=== PATIENT | male | born 1955 | race Caucasian/White ===

== ENCOUNTER 2020-12-17 08:01 | Inpatient (IN) ==
[2020-12-17] MEDS ORDERED: 0.9 % Sodium Chloride 1,000 ML IVC ONE (08:18)
[2020-12-17] MEDS ORDERED: 0.9 % Sodium Chloride 1,000 ML ONE (08:27)
[2020-12-17 08:31] LABS: ABG Base Excess -1 mEq/L (-2 to 3); ABG HCO3 27 mEq/L (21-27); ABG Oxygen Saturation 92 % (95-98); ABG PCO2 61 mmHg (35-45); ABG PH 7.26 pH Units (7.32-7.45); ABG PO2 76 mmHg (85-104); ABG TCO2 29 mEq/L (20-26)
[2020-12-17] MEDS ORDERED: 0.9 % Sodium Chloride 500 ML ONE (08:33)
[2020-12-17] MEDS ORDERED: 0.9 % Sodium Chloride 500 ML IV ONE (08:36)
[2020-12-17 08:40] LABS: Basophils % 0.2 %; Hematocrit 40.2 % (37.5-50.1); Hemoglobin 12.9 g/dL (12.9-16.9); Immature Granulocytes % 0.6 % (0-4); Lymphocytes # 0.7 K/mcL (0.6-4.6); Mean Corpuscular HGB Conc 32.1 g/dL (31.6-35.5); Mean Corpuscular Hemoglobin 30.4 pg (28.0-33.3); Mean Corpuscular Volume 94.8 fL (83.0-100.0); Mean Platelet Volume 10.8 fL (9.4-12.4); Monocytes # 0.8 K/mcL (0.0-1.3); Monocytes % 7.9 %; Neutrophils # 8.1 K/mcL (1.6-8.9); Platelet Count 192 K/mcL (140-400); Red Blood Count 4.24 M/mcL (4.19-5.50); Red Cell Distribution Width 14.2 % (11.5-14.5); Segmented Neutrophils % 84.3 %; White Blood Count 9.6 K/mcL (4.3-11.1)
[2020-12-17 08:55] LABS: Albumin 3.9 g/dL (3.5-5.7); Albumin/Globulin Ratio 1.4 (1.1-2.2); Bilirubin,Direct 0.2 mg/dL (0.0-0.2); Bilirubin,Indirect 0.4 mg/dL (0.0-1.0); Bilirubin,Total 0.6 mg/dL (0.3-1.0); Calcium 8.5 mg/dL (8.6-10.3); Globulin 2.7 g/dL (2.4-3.5); Potassium 4.2 mEq/L (3.5-5.1); Total Protein 6.6 g/dL (6.4-8.9); Troponin I 0.05 ng/mL (< 0.04)
[2020-12-17 09:05] LABS: Influenza A PCR Negative (Negative); Influenza B PCR Negative (Negative); Resp. Syncytial Virus PCR Negative (Negative)
[2020-12-17 09:06] LABS: SARS-CoV-2 by PCR (In House) Negative (Negative)
[2020-12-17 09:57] LABS: Bacteria,Urine Few per hpf (None-Few); Bilirubin,Urine Negative (Negative); Blood,Urine Negative (Negative); Clarity,Urine Clear (Clear); Color,Urine Yellow (Yellow); Glucose,Urine (UA) Normal (Normal); Hyaline Casts,Urine Few per lpf (None Seen); Ketones,Urine Negative (Negative); Leukocyte Esterase,Urine Negative (Negative); Mucus,Urine Few per lpf (None-Few); Nitrite,Urine Negative (Negative); PH,Urine 5.5 pH Units (5.0-8.0); Protein,Urine 30 mg/dL (Neg-Trace); Specific Gravity,Urine 1.017 (1.010-1.025); Urobilinogen,Urine Normal (Normal); WBC,Urine 0-3 per hpf (0-3)
[2020-12-17] MEDS ORDERED: Isovue-370 500 ML BOTTLE IVP ONE (09:57)
[2020-12-17 10:17] LABS: Amphetamine Screen,Urine Negative ng/mL (Cutoff=1000); Barbiturate Screen,Urine Negative ng/mL (Cutoff=200); Benzodiazepines Screen,Urine Negative ng/mL (Cutoff=200); Cannabinoid Screen,Urine Negative ng/mL (Cutoff = 50); Cocaine Screen,Urine Negative ng/mL (Cutoff= 300); Opiate Screen,Urine Negative ng/mL (Cutoff=300); Phencyclidine Screen,Urine Negative ng/mL (Cutoff=25)
[2020-12-17] MEDS ORDERED: Ondansetron 4 MG/2 ML VIAL IVP PRN (11:49)
[2020-12-17] MEDS ORDERED: Naloxone 0.4 MG/ML INJ IVP PRN (11:49)
[2020-12-17] MEDS ORDERED: Furosemide 40 MG/4 ML VIAL IVP ONE (11:50)
[2020-12-17] MEDS ORDERED: *HR* Dextrose 50 % in Water (Syg) 50 ML SYRINGE IVP PRN (11:52)
[2020-12-17] MEDS ORDERED: Dextrose Gel 15 GM/37.5 ML TUBE PO PRN ×2 (11:52)
[2020-12-17] MEDS ORDERED: D5% in Water 1,000 ML IVC PRN (11:52)
[2020-12-17] MEDS: Ipratropium/Albuterol Neb 3 ML IH SCH ×3 (12:00→19:36)
[2020-12-17] MEDS ORDERED: Insulin LISPRO 300 UNITS/3 ML VIAL SUBQ SCH ×2 (12:00→21:00)
[2020-12-17 15:52] LABS: Adenovirus Not Detected (Not Detect); Bordetella Pertussis Not Detected (Not Detect); Chlamydophila pneumoniae Not Detected (Not Detect); Coronavirus 229E Not Detected (Not Detect); Coronavirus HKU1 Not Detected (Not Detect); Coronavirus NL63 Not Detected (Not Detect); Coronavirus OC43 Not Detected (Not Detect); Human Metapneumovirus Not Detected (Not Detect); Human Rhinovirus/Enterovirus Not Detected (Not Detect); Influenza A Subtype 2009 H1 Not Detected (Not Detect); Influenza B Not Detected (Not Detect); Mycoplasma pneumoniae Not Detected (Not Detect); Parainfluenza Virus 1 Not Detected (Not Detect); Parainfluenza Virus 2 Not Detected (Not Detect); Parainfluenza Virus 3 Not Detected (Not Detect); Parainfluenza Virus 4 Not Detected (Not Detect); Respiratory Syncytial Virus Not Detected (Not Detect); SARS-CoV-2 Not Detected (Not Detect)
[2020-12-17] MEDS: Budesonide/Formoterol 160/4.5 1 PUFF INH IH SCH (19:36)
[2020-12-17] MEDS ORDERED: Perflutren Lipid Microsphere 1.3 ML in 0.9 % Sodium Chloride 8.7 ML IVP PRN (19:43)
[2020-12-17] MEDS ORDERED: Furosemide 20 MG/2 ML VIAL IVP ONE (19:44)
[2020-12-17] MEDS ORDERED: methylPREDNISolone 125 MG/2 ML VIAL IVP ONE (20:15)
[2020-12-17] MEDS: QUEtiapine Fumarate 300 MG TABLET PO SCH (20:40)
[2020-12-17] MEDS: *HR* LORazepam 1 MG TABLET PO SCH (20:40)
[2020-12-17] MEDS: Topiramate 100 MG TABLET PO SCH (20:40)
[2020-12-17] MEDS: *HR* Heparin 5,000 UNIT/ML VIAL SQ SCH (20:46)
[2020-12-17] MEDS: Insulin DETEMIR 100 UNIT/ML X5UNITS SUBQ SCH (20:53)
[2020-12-17] MEDS ORDERED: Insulin DETEMIR 100 UNIT/ML X5UNITS SUBQ SCH (21:00)
[2020-12-17] MEDS ORDERED: levoFLOXacin 750 MG TABLET PO SCH (21:00)
[2020-12-18] MEDS: Ipratropium/Albuterol Neb 3 ML IH SCH ×7 (00:28→23:56)
[2020-12-18] MEDS: *HR* Heparin 5,000 UNIT/ML VIAL SQ SCH ×3 (04:39→20:44)
[2020-12-18] MEDS: MethylPREDNISolone 40 MG/ML VIAL IVP SCH ×2 (04:40→20:45)
[2020-12-18 05:54] LABS: Basophils % 0.1 %; Hematocrit 40.7 % (37.5-50.1); Hemoglobin 12.6 g/dL (12.9-16.9); Immature Granulocytes % 0.5 % (0-4); Lymphocytes # 0.3 K/mcL (0.6-4.6); Lymphocytes % 3.3 %; Mean Corpuscular Hemoglobin 29.8 pg (28.0-33.3); Mean Corpuscular Volume 96.2 fL (83.0-100.0); Mean Platelet Volume 11.1 fL (9.4-12.4); Monocytes # 0.2 K/mcL (0.0-1.3); Monocytes % 2.1 %; Neutrophils # 7.9 K/mcL (1.6-8.9); Platelet Count 207 K/mcL (140-400); Red Blood Count 4.23 M/mcL (4.19-5.50); Red Cell Distribution Width 14.6 % (11.5-14.5); White Blood Count 8.4 K/mcL (4.3-11.1)
[2020-12-18 06:11] LABS: Albumin 3.9 g/dL (3.5-5.7); Albumin/Globulin Ratio 1.3 (1.1-2.2); Bilirubin,Total 0.4 mg/dL (0.3-1.0); Calcium 8.8 mg/dL (8.6-10.3); Globulin 2.9 g/dL (2.4-3.5); Magnesium 1.8 mg/dL (1.6-2.6); Phosphorous 2.7 mg/dL (2.7-4.5); Potassium 4.4 mEq/L (3.5-5.1); Total Protein 6.8 g/dL (6.4-8.9)
[2020-12-18 06:34] LABS: Folate 10.6 ng/mL (3.0-16.0)
[2020-12-18] MEDS: Budesonide/Formoterol 160/4.5 1 PUFF INH IH SCH ×2 (07:31→20:01)
[2020-12-18] MEDS: Aspirin Enteric Coated 81 MG Tablet PO SCH (08:43)
[2020-12-18] MEDS: *HR* LORazepam 1 MG TABLET PO SCH ×2 (08:43→20:48)
[2020-12-18] MEDS: ARIPiprazole 10 MG TABLET PO SCH (08:43)
[2020-12-18] MEDS: Finasteride 5 MG TABLET PO SCH (08:43)
[2020-12-18] MEDS: Cholecalciferol (D-3) 1,000 UNIT (25MCG) TABLET PO SCH (08:43)
[2020-12-18] MEDS: Topiramate 100 MG TABLET PO SCH ×2 (08:43→20:43)
[2020-12-18] MEDS: QUEtiapine Fumarate 100 MG TABLET PO SCH (08:44)
[2020-12-18] MEDS: Furosemide 40 MG/4 ML VIAL IVP SCH (08:44)
[2020-12-18] MEDS: Insulin DETEMIR 100 UNIT/ML X5UNITS SUBQ SCH ×2 (08:44→20:44)
[2020-12-18] MEDS: Insulin LISPRO 300 UNITS/3 ML VIAL SUBQ SCH ×4 (08:45→20:44)
[2020-12-18] MEDS ORDERED: Furosemide 40 MG TABLET PO SCH (09:00)
[2020-12-18] MEDS: NIFEdipine XL (24 HR) 30 MG TAB.ER.24 PO SCH (12:43)
[2020-12-18] MEDS ORDERED: Insulin DETEMIR 100 UNIT/ML X5UNITS SUBQ ONE (13:39)
[2020-12-18 14:12] LABS: Estimated Average Glucose 180 mg/dl; Hemoglobin A1C 7.9 %
[2020-12-18] MEDS: QUEtiapine Fumarate 300 MG TABLET PO SCH (20:43)
[2020-12-19 04:52] LABS: Basophils % 0.1 %; Hematocrit 37.6 % (37.5-50.1); Hemoglobin 12.1 g/dL (12.9-16.9); Immature Granulocytes % 0.4 % (0-4); Lymphocytes # 0.4 K/mcL (0.6-4.6); Mean Corpuscular HGB Conc 32.2 g/dL (31.6-35.5); Mean Corpuscular Hemoglobin 30.3 pg (28.0-33.3); Mean Platelet Volume 10.8 fL (9.4-12.4); Monocytes # 0.4 K/mcL (0.0-1.3); Monocytes % 4.1 %; Neutrophils # 8.8 K/mcL (1.6-8.9); Platelet Count 225 K/mcL (140-400); Red Cell Distribution Width 14.2 % (11.5-14.5); Segmented Neutrophils % 91.4 %; White Blood Count 9.7 K/mcL (4.3-11.1)
[2020-12-19 05:07] LABS: Calcium 8.7 mg/dL (8.6-10.3); Potassium 4.4 mEq/L (3.5-5.1)
[2020-12-19] MEDS: Ipratropium/Albuterol Neb 3 ML IH SCH ×5 (05:09→20:00)
[2020-12-19] MEDS: *HR* Heparin 5,000 UNIT/ML VIAL SQ SCH ×3 (05:42→21:26)
[2020-12-19] MEDS: MethylPREDNISolone 40 MG/ML VIAL IVP SCH ×2 (05:47→17:14)
[2020-12-19] MEDS: Budesonide/Formoterol 160/4.5 1 PUFF INH IH SCH ×2 (07:58→20:00)
[2020-12-19] MEDS: Topiramate 100 MG TABLET PO SCH ×2 (09:26→21:26)
[2020-12-19] MEDS: Insulin LISPRO 300 UNITS/3 ML VIAL SUBQ SCH ×6 (09:32→21:27)
[2020-12-19] MEDS: Insulin DETEMIR 100 UNIT/ML X5UNITS SUBQ SCH ×2 (09:33→21:27)
[2020-12-19] MEDS: *HR* LORazepam 1 MG TABLET PO SCH ×2 (09:33→21:26)
[2020-12-19] MEDS: Finasteride 5 MG TABLET PO SCH (09:33)
[2020-12-19] MEDS: QUEtiapine Fumarate 100 MG TABLET PO SCH (09:33)
[2020-12-19] MEDS: Cholecalciferol (D-3) 1,000 UNIT (25MCG) TABLET PO SCH (09:33)
[2020-12-19] MEDS: ARIPiprazole 10 MG TABLET PO SCH (09:33)
[2020-12-19] MEDS: Aspirin Enteric Coated 81 MG Tablet PO SCH (09:33)
[2020-12-19] MEDS: Furosemide 40 MG/4 ML VIAL IVP SCH (09:34)
[2020-12-19] MEDS ORDERED: Insulin DETEMIR 100 UNIT/ML X5UNITS SUBQ ONE (10:22)
[2020-12-19] MEDS: NIFEdipine XL (24 HR) 30 MG TAB.ER.24 PO SCH (13:32)
[2020-12-19] MEDS: levoFLOXacin 750 MG TABLET PO SCH (17:14)
[2020-12-19] MEDS: QUEtiapine Fumarate 300 MG TABLET PO SCH (21:26)
[2020-12-19] MEDS: cloZAPine 25 MG TABLET PO SCH (21:26)
[2020-12-20] MEDS: Ipratropium/Albuterol Neb 3 ML IH SCH ×7 (00:08→23:02)
[2020-12-20 01:45] LABS: Basophils % 0.1 %; Hematocrit 36.4 % (37.5-50.1); Hemoglobin 11.8 g/dL (12.9-16.9); Immature Granulocytes % 0.4 % (0-4); Lymphocytes # 0.6 K/mcL (0.6-4.6); Lymphocytes % 7.3 %; Mean Corpuscular HGB Conc 32.4 g/dL (31.6-35.5); Mean Corpuscular Hemoglobin 30.4 pg (28.0-33.3); Mean Corpuscular Volume 93.8 fL (83.0-100.0); Mean Platelet Volume 10.7 fL (9.4-12.4); Monocytes # 0.5 K/mcL (0.0-1.3); Monocytes % 6.3 %; Neutrophils # 6.6 K/mcL (1.6-8.9); Platelet Count 209 K/mcL (140-400); Red Blood Count 3.88 M/mcL (4.19-5.50); Red Cell Distribution Width 14.2 % (11.5-14.5); Segmented Neutrophils % 85.9 %; White Blood Count 7.6 K/mcL (4.3-11.1)
[2020-12-20 02:02] LABS: Potassium 4.6 mEq/L (3.5-5.1)
[2020-12-20] MEDS: MethylPREDNISolone 40 MG/ML VIAL IVP SCH (05:09)
[2020-12-20] MEDS: *HR* Heparin 5,000 UNIT/ML VIAL SQ SCH ×3 (05:11→21:31)
[2020-12-20] MEDS: Furosemide 40 MG/4 ML VIAL IVP SCH (07:31)
[2020-12-20] MEDS: ARIPiprazole 10 MG TABLET PO SCH (07:31)
[2020-12-20] MEDS: Topiramate 100 MG TABLET PO SCH ×2 (07:32→21:30)
[2020-12-20] MEDS: QUEtiapine Fumarate 100 MG TABLET PO SCH (07:32)
[2020-12-20] MEDS: Cholecalciferol (D-3) 1,000 UNIT (25MCG) TABLET PO SCH (07:33)
[2020-12-20] MEDS: *HR* LORazepam 1 MG TABLET PO SCH ×2 (07:33→21:30)
[2020-12-20] MEDS: Aspirin Enteric Coated 81 MG Tablet PO SCH (07:33)
[2020-12-20] MEDS: Insulin LISPRO 300 UNITS/3 ML VIAL SUBQ SCH ×7 (07:33→21:34)
[2020-12-20] MEDS: Finasteride 5 MG TABLET PO SCH (07:33)
[2020-12-20] MEDS: levoFLOXacin 750 MG TABLET PO SCH (07:33)
[2020-12-20] MEDS: Budesonide/Formoterol 160/4.5 1 PUFF INH IH SCH ×2 (07:55→19:50)
[2020-12-20] MEDS: Insulin DETEMIR 100 UNIT/ML X5UNITS SUBQ SCH ×2 (08:02→21:31)
[2020-12-20] MEDS ORDERED: Insulin DETEMIR 100 UNIT/ML X5UNITS SUBQ ONE (08:41)
[2020-12-20] MEDS: NIFEdipine XL (24 HR) 30 MG TAB.ER.24 PO SCH (11:39)
[2020-12-20] MEDS: QUEtiapine Fumarate 300 MG TABLET PO SCH (21:30)
[2020-12-20] MEDS: cloZAPine 25 MG TABLET PO SCH (21:31)
[2020-12-21 02:40] LABS: Basophils % 0.3 %; Eosinophils % 0.3 %; Hematocrit 39.5 % (37.5-50.1); Hemoglobin 12.3 g/dL (12.9-16.9); Immature Granulocytes % 0.7 % (0-4); Lymphocytes # 1.4 K/mcL (0.6-4.6); Lymphocytes % 16.1 %; Mean Corpuscular HGB Conc 31.1 g/dL (31.6-35.5); Mean Corpuscular Hemoglobin 29.6 pg (28.0-33.3); Mean Platelet Volume 10.4 fL (9.4-12.4); Monocytes # 0.9 K/mcL (0.0-1.3); Monocytes % 9.5 %; Neutrophils # 6.5 K/mcL (1.6-8.9); Platelet Count 208 K/mcL (140-400); Red Blood Count 4.16 M/mcL (4.19-5.50); Red Cell Distribution Width 14.4 % (11.5-14.5); Segmented Neutrophils % 73.1 %; White Blood Count 8.9 K/mcL (4.3-11.1)
[2020-12-21 02:55] LABS: Calcium 9.3 mg/dL (8.6-10.3); Potassium 4.1 mEq/L (3.5-5.1)
[2020-12-21] MEDS: Ipratropium/Albuterol Neb 3 ML IH SCH ×6 (04:02→23:51)
[2020-12-21] MEDS: *HR* Heparin 5,000 UNIT/ML VIAL SQ SCH ×3 (06:30→21:31)
[2020-12-21] MEDS: Budesonide/Formoterol 160/4.5 1 PUFF INH IH SCH ×2 (07:39→20:25)
[2020-12-21] MEDS: Insulin LISPRO 300 UNITS/3 ML VIAL SUBQ SCH ×7 (08:12→21:47)
[2020-12-21] MEDS: *HR* LORazepam 1 MG TABLET PO SCH ×2 (08:13→21:39)
[2020-12-21] MEDS: levoFLOXacin 750 MG TABLET PO SCH (08:13)
[2020-12-21] MEDS: Finasteride 5 MG TABLET PO SCH (08:13)
[2020-12-21] MEDS: ARIPiprazole 10 MG TABLET PO SCH (08:14)
[2020-12-21] MEDS: QUEtiapine Fumarate 100 MG TABLET PO SCH (08:14)
[2020-12-21] MEDS: Aspirin Enteric Coated 81 MG Tablet PO SCH (08:14)
[2020-12-21] MEDS: Topiramate 100 MG TABLET PO SCH ×2 (08:14→21:39)
[2020-12-21] MEDS: Cholecalciferol (D-3) 1,000 UNIT (25MCG) TABLET PO SCH (08:14)
[2020-12-21] MEDS: Insulin DETEMIR 100 UNIT/ML X5UNITS SUBQ SCH ×2 (09:23→21:31)
[2020-12-21] MEDS: NIFEdipine XL (24 HR) 30 MG TAB.ER.24 PO SCH (12:32)
[2020-12-21] MEDS ORDERED: Acetaminophen 325 MG TABLET PO ONE (20:03)
[2020-12-21] MEDS: QUEtiapine Fumarate 300 MG TABLET PO SCH (21:39)
[2020-12-21] MEDS: cloZAPine 25 MG TABLET PO SCH (21:39)
[2020-12-21] MEDS: polyethylene glycoL 3350 17 GM POWD.PACK PO PRN (23:27)
[2020-12-22] MEDS: Ipratropium/Albuterol Neb 3 ML IH SCH ×6 (03:49→23:39)
[2020-12-22] MEDS: *HR* Heparin 5,000 UNIT/ML VIAL SQ SCH ×3 (06:01→21:17)
[2020-12-22 06:28] LABS: Calcium 8.7 mg/dL (8.6-10.3); Potassium 4.3 mEq/L (3.5-5.1)
[2020-12-22 06:30] LABS: Basophils # 0.1 K/mcL (0.0-0.2); Basophils % 0.6 %; Eosinophils # 0.1 K/mcL (0.0-0.6); Hematocrit 37.9 % (37.5-50.1); Hemoglobin 11.9 g/dL (12.9-16.9); Immature Granulocytes % 1.7 % (0-4); Lymphocytes # 1.3 K/mcL (0.6-4.6); Lymphocytes % 16.8 %; Mean Corpuscular HGB Conc 31.4 g/dL (31.6-35.5); Mean Corpuscular Hemoglobin 29.9 pg (28.0-33.3); Mean Corpuscular Volume 95.2 fL (83.0-100.0); Mean Platelet Volume 10.7 fL (9.4-12.4); Monocytes # 0.7 K/mcL (0.0-1.3); Monocytes % 9.6 %; Neutrophils # 5.4 K/mcL (1.6-8.9); Platelet Count 221 K/mcL (140-400); Red Blood Count 3.98 M/mcL (4.19-5.50); Red Cell Distribution Width 14.4 % (11.5-14.5); Segmented Neutrophils % 70.3 %; White Blood Count 7.7 K/mcL (4.3-11.1)
[2020-12-22] MEDS: Budesonide/Formoterol 160/4.5 1 PUFF INH IH SCH ×2 (08:03→20:33)
[2020-12-22] MEDS: Insulin LISPRO 300 UNITS/3 ML VIAL SUBQ SCH ×7 (08:24→21:16)
[2020-12-22] MEDS: ARIPiprazole 10 MG TABLET PO SCH (08:25)
[2020-12-22] MEDS: Finasteride 5 MG TABLET PO SCH (08:25)
[2020-12-22] MEDS: Aspirin Enteric Coated 81 MG Tablet PO SCH (08:25)
[2020-12-22] MEDS: QUEtiapine Fumarate 100 MG TABLET PO SCH (08:25)
[2020-12-22] MEDS: Cholecalciferol (D-3) 1,000 UNIT (25MCG) TABLET PO SCH (08:25)
[2020-12-22] MEDS: *HR* LORazepam 1 MG TABLET PO SCH ×2 (08:26→21:14)
[2020-12-22] MEDS: levoFLOXacin 750 MG TABLET PO SCH (08:26)
[2020-12-22] MEDS: Insulin DETEMIR 100 UNIT/ML X5UNITS SUBQ SCH ×2 (08:26→21:16)
[2020-12-22] MEDS: Topiramate 100 MG TABLET PO SCH ×2 (08:26→21:14)
[2020-12-22] MEDS ORDERED: Isovue-370 500 ML BOTTLE IVP ONE (11:39)
[2020-12-22] MEDS: NIFEdipine XL (24 HR) 30 MG TAB.ER.24 PO SCH (12:55)
[2020-12-22] MEDS: polyethylene glycoL 3350 17 GM POWD.PACK PO PRN (13:06)
[2020-12-22 18:14] LABS: Influenza A PCR Negative (Negative); Influenza B PCR Negative (Negative); Resp. Syncytial Virus PCR Negative (Negative)
[2020-12-22 18:15] LABS: SARS-CoV-2 by PCR (In House) Negative (Negative)
[2020-12-22] MEDS: QUEtiapine Fumarate 300 MG TABLET PO SCH (21:14)
[2020-12-22] MEDS: cloZAPine 25 MG TABLET PO SCH (21:15)
[2020-12-23 01:39] LABS: Basophils # 0.1 K/mcL (0.0-0.2); Basophils % 0.6 %; Eosinophils # 0.2 K/mcL (0.0-0.6); Hematocrit 39.7 % (37.5-50.1); Hemoglobin 12.2 g/dL (12.9-16.9); Immature Granulocytes % 2.1 % (0-4); Lymphocytes # 1.2 K/mcL (0.6-4.6); Lymphocytes % 14.5 %; Mean Corpuscular HGB Conc 30.7 g/dL (31.6-35.5); Mean Corpuscular Hemoglobin 29.2 pg (28.0-33.3); Mean Platelet Volume 10.8 fL (9.4-12.4); Monocytes # 0.8 K/mcL (0.0-1.3); Monocytes % 9.5 %; Neutrophils # 5.8 K/mcL (1.6-8.9); Platelet Count 231 K/mcL (140-400); Red Blood Count 4.18 M/mcL (4.19-5.50); Red Cell Distribution Width 14.2 % (11.5-14.5); Segmented Neutrophils % 71.3 %; White Blood Count 8.1 K/mcL (4.3-11.1)
[2020-12-23 02:01] LABS: Potassium 4.6 mEq/L (3.5-5.1)
[2020-12-23] MEDS: Ipratropium/Albuterol Neb 3 ML IH SCH ×6 (04:32→23:18)
[2020-12-23] MEDS: *HR* Heparin 5,000 UNIT/ML VIAL SQ SCH ×3 (05:29→21:45)
[2020-12-23] MEDS: ARIPiprazole 10 MG TABLET PO SCH (07:14)
[2020-12-23] MEDS: Insulin LISPRO 300 UNITS/3 ML VIAL SUBQ SCH ×7 (07:14→21:45)
[2020-12-23] MEDS: Cholecalciferol (D-3) 1,000 UNIT (25MCG) TABLET PO SCH (07:15)
[2020-12-23] MEDS: levoFLOXacin 750 MG TABLET PO SCH (07:15)
[2020-12-23] MEDS: Insulin DETEMIR 100 UNIT/ML X5UNITS SUBQ SCH (07:15)
[2020-12-23] MEDS: QUEtiapine Fumarate 100 MG TABLET PO SCH (07:15)
[2020-12-23] MEDS: *HR* LORazepam 1 MG TABLET PO SCH ×2 (07:16→21:44)
[2020-12-23] MEDS: Topiramate 100 MG TABLET PO SCH ×2 (07:16→21:45)
[2020-12-23] MEDS: Finasteride 5 MG TABLET PO SCH (07:16)
[2020-12-23] MEDS: Aspirin Enteric Coated 81 MG Tablet PO SCH (07:16)
[2020-12-23] MEDS: Budesonide/Formoterol 160/4.5 1 PUFF INH IH SCH ×2 (07:41→20:11)
[2020-12-23] MEDS: NIFEdipine XL (24 HR) 30 MG TAB.ER.24 PO SCH (12:54)
[2020-12-23] MEDS ORDERED: Furosemide 40 MG/4 ML VIAL IVP ONE (13:35)
[2020-12-23] MEDS ORDERED: Insulin DETEMIR 100 UNIT/ML X5UNITS SUBQ SCH (21:00)
[2020-12-23] MEDS: cloZAPine 25 MG TABLET PO SCH (21:44)
[2020-12-23] MEDS: QUEtiapine Fumarate 300 MG TABLET PO SCH (21:44)
[2020-12-24 02:59] LABS: Basophils # 0.1 K/mcL (0.0-0.2); Basophils % 0.6 %; Eosinophils # 0.2 K/mcL (0.0-0.6); Eosinophils % 1.9 %; Hematocrit 38.4 % (37.5-50.1); Hemoglobin 12.4 g/dL (12.9-16.9); Immature Granulocytes % 2.4 % (0-4); Lymphocytes # 1.1 K/mcL (0.6-4.6); Lymphocytes % 13.1 %; Mean Corpuscular HGB Conc 32.3 g/dL (31.6-35.5); Mean Corpuscular Hemoglobin 30.5 pg (28.0-33.3); Mean Corpuscular Volume 94.6 fL (83.0-100.0); Mean Platelet Volume 10.8 fL (9.4-12.4); Monocytes # 0.8 K/mcL (0.0-1.3); Monocytes % 9.3 %; Neutrophils # 6.1 K/mcL (1.6-8.9); Platelet Count 210 K/mcL (140-400); Red Blood Count 4.06 M/mcL (4.19-5.50); Segmented Neutrophils % 72.7 %; White Blood Count 8.4 K/mcL (4.3-11.1)
[2020-12-24 03:14] LABS: Calcium 8.7 mg/dL (8.6-10.3); Potassium 4.2 mEq/L (3.5-5.1)
[2020-12-24] MEDS: Ipratropium/Albuterol Neb 3 ML IH SCH ×5 (04:04→21:03)
[2020-12-24] MEDS: *HR* Heparin 5,000 UNIT/ML VIAL SQ SCH ×3 (06:56→22:09)
[2020-12-24] MEDS: Budesonide/Formoterol 160/4.5 1 PUFF INH IH SCH ×2 (07:49→21:01)
[2020-12-24] MEDS ORDERED: Furosemide 40 MG/4 ML VIAL IVP ONE (08:57)
[2020-12-24] MEDS: Insulin LISPRO 300 UNITS/3 ML VIAL SUBQ SCH ×7 (10:08→22:07)
[2020-12-24] MEDS: QUEtiapine Fumarate 100 MG TABLET PO SCH (10:09)
[2020-12-24] MEDS: Topiramate 100 MG TABLET PO SCH ×2 (10:09→22:08)
[2020-12-24] MEDS: ARIPiprazole 10 MG TABLET PO SCH (10:10)
[2020-12-24] MEDS: *HR* LORazepam 1 MG TABLET PO SCH ×2 (10:10→22:08)
[2020-12-24] MEDS: Aspirin Enteric Coated 81 MG Tablet PO SCH (10:10)
[2020-12-24] MEDS: Cholecalciferol (D-3) 1,000 UNIT (25MCG) TABLET PO SCH (10:10)
[2020-12-24] MEDS: Finasteride 5 MG TABLET PO SCH (10:10)
[2020-12-24] MEDS: NIFEdipine XL (24 HR) 30 MG TAB.ER.24 PO SCH (13:00)
[2020-12-24] MEDS ORDERED: Insulin DETEMIR 100 UNIT/ML X5UNITS SUBQ ONE (17:19)
[2020-12-24] MEDS: QUEtiapine Fumarate 300 MG TABLET PO SCH (22:07)
[2020-12-24] MEDS: Insulin DETEMIR 100 UNIT/ML X5UNITS SUBQ SCH (22:09)
[2020-12-24] MEDS: cloZAPine 25 MG TABLET PO SCH (22:09)
[2020-12-25] MEDS: Ipratropium/Albuterol Neb 3 ML IH SCH ×7 (00:32→23:59)
[2020-12-25] MEDS: *HR* Heparin 5,000 UNIT/ML VIAL SQ SCH ×3 (06:01→21:22)
[2020-12-25] MEDS: Budesonide/Formoterol 160/4.5 1 PUFF INH IH SCH ×2 (07:46→21:10)
[2020-12-25 07:51] LABS: Basophils # 0.1 K/mcL (0.0-0.2); Basophils % 0.8 %; Eosinophils # 0.1 K/mcL (0.0-0.6); Eosinophils % 1.9 %; Hematocrit 38.5 % (37.5-50.1); Hemoglobin 12.2 g/dL (12.9-16.9); Immature Granulocytes % 3.4 % (0-4); Lymphocytes # 1.1 K/mcL (0.6-4.6); Lymphocytes % 14.9 %; Mean Corpuscular HGB Conc 31.7 g/dL (31.6-35.5); Mean Corpuscular Volume 94.8 fL (83.0-100.0); Mean Platelet Volume 10.9 fL (9.4-12.4); Monocytes # 0.7 K/mcL (0.0-1.3); Monocytes % 8.9 %; Neutrophils # 5.2 K/mcL (1.6-8.9); Platelet Count 229 K/mcL (140-400); Red Blood Count 4.06 M/mcL (4.19-5.50); Red Cell Distribution Width 14.1 % (11.5-14.5); Segmented Neutrophils % 70.1 %; White Blood Count 7.4 K/mcL (4.3-11.1)
[2020-12-25 08:05] LABS: Calcium 8.8 mg/dL (8.6-10.3); Potassium 4.4 mEq/L (3.5-5.1)
[2020-12-25] MEDS: Insulin LISPRO 300 UNITS/3 ML VIAL SUBQ SCH ×7 (08:53→21:49)
[2020-12-25] MEDS: Cholecalciferol (D-3) 1,000 UNIT (25MCG) TABLET PO SCH (08:54)
[2020-12-25] MEDS: QUEtiapine Fumarate 100 MG TABLET PO SCH (08:54)
[2020-12-25] MEDS: Topiramate 100 MG TABLET PO SCH ×2 (08:54→21:23)
[2020-12-25] MEDS: *HR* LORazepam 1 MG TABLET PO SCH ×2 (08:54→21:23)
[2020-12-25] MEDS: Insulin DETEMIR 100 UNIT/ML X5UNITS SUBQ SCH ×2 (08:54→21:23)
[2020-12-25] MEDS: Finasteride 5 MG TABLET PO SCH (08:55)
[2020-12-25] MEDS: Aspirin Enteric Coated 81 MG Tablet PO SCH (08:55)
[2020-12-25] MEDS: ARIPiprazole 10 MG TABLET PO SCH (08:55)
[2020-12-25] MEDS: NIFEdipine XL (24 HR) 30 MG TAB.ER.24 PO SCH (11:59)
[2020-12-25] MEDS: cloZAPine 25 MG TABLET PO SCH (21:22)
[2020-12-25] MEDS: QUEtiapine Fumarate 300 MG TABLET PO SCH (21:23)
[2020-12-25 21:39] LABS: ABG Base Excess 6 mEq/L (-2 to 3); ABG HCO3 34 mEq/L (21-27); ABG Oxygen Saturation 28 % (95-98); ABG PCO2 66 mmHg (35-45); ABG PH 7.32 pH Units (7.32-7.45); ABG PO2 21 mmHg (85-104); ABG TCO2 36 mEq/L (20-26)
[2020-12-26 02:43] LABS: Basophils % 0.6 %; Eosinophils # 0.2 K/mcL (0.0-0.6); Eosinophils % 2.2 %; Hematocrit 36.2 % (37.5-50.1); Hemoglobin 11.6 g/dL (12.9-16.9); Immature Granulocytes % 4.5 % (0-4); Lymphocytes # 1.2 K/mcL (0.6-4.6); Lymphocytes % 17.8 %; Mean Corpuscular Hemoglobin 30.4 pg (28.0-33.3); Mean Corpuscular Volume 94.8 fL (83.0-100.0); Mean Platelet Volume 11.2 fL (9.4-12.4); Monocytes # 0.7 K/mcL (0.0-1.3); Monocytes % 9.7 %; Neutrophils # 4.5 K/mcL (1.6-8.9); Platelet Count 210 K/mcL (140-400); Red Blood Count 3.82 M/mcL (4.19-5.50); Red Cell Distribution Width 14.3 % (11.5-14.5); Segmented Neutrophils % 65.2 %; White Blood Count 6.9 K/mcL (4.3-11.1)
[2020-12-26 03:10] LABS: Calcium 8.3 mg/dL (8.6-10.3); Potassium 4.5 mEq/L (3.5-5.1)
[2020-12-26] MEDS: Ipratropium/Albuterol Neb 3 ML IH SCH ×6 (04:29→23:27)
[2020-12-26] MEDS: *HR* Heparin 5,000 UNIT/ML VIAL SQ SCH ×3 (05:34→21:06)
[2020-12-26] MEDS: Budesonide/Formoterol 160/4.5 1 PUFF INH IH SCH ×2 (08:10→20:18)
[2020-12-26] MEDS: Cholecalciferol (D-3) 1,000 UNIT (25MCG) TABLET PO SCH (08:25)
[2020-12-26] MEDS: ARIPiprazole 10 MG TABLET PO SCH (08:25)
[2020-12-26] MEDS: *HR* LORazepam 1 MG TABLET PO SCH ×2 (08:26→21:05)
[2020-12-26] MEDS: Aspirin Enteric Coated 81 MG Tablet PO SCH (08:26)
[2020-12-26] MEDS: Finasteride 5 MG TABLET PO SCH (08:26)
[2020-12-26] MEDS: QUEtiapine Fumarate 100 MG TABLET PO SCH (08:26)
[2020-12-26] MEDS: Topiramate 100 MG TABLET PO SCH ×2 (08:26→21:05)
[2020-12-26] MEDS: Insulin DETEMIR 100 UNIT/ML X5UNITS SUBQ SCH ×2 (08:30→21:05)
[2020-12-26] MEDS: Insulin LISPRO 300 UNITS/3 ML VIAL SUBQ SCH ×7 (08:30→21:06)
[2020-12-26] MEDS: NIFEdipine XL (24 HR) 30 MG TAB.ER.24 PO SCH (11:50)
[2020-12-26] MEDS: QUEtiapine Fumarate 300 MG TABLET PO SCH (21:05)
[2020-12-26] MEDS: cloZAPine 25 MG TABLET PO SCH (21:05)
[2020-12-27] MEDS: Ipratropium/Albuterol Neb 3 ML IH SCH ×3 (03:37→11:31)
[2020-12-27] MEDS: *HR* Heparin 5,000 UNIT/ML VIAL SQ SCH (07:15)
[2020-12-27] MEDS: Budesonide/Formoterol 160/4.5 1 PUFF INH IH SCH (07:34)
[2020-12-27] MEDS ORDERED: Furosemide 40 MG/4 ML VIAL IVP ONE (08:13)
[2020-12-27] MEDS ORDERED: Isovue-370 500 ML BOTTLE IVP ONE (08:36)
[2020-12-27] MEDS ORDERED: Sennosides/Docusate Sodium TABLET PO PRN (08:37)
[2020-12-27] MEDS: Insulin LISPRO 300 UNITS/3 ML VIAL SUBQ SCH ×4 (09:58→11:55)
[2020-12-27] MEDS: *HR* LORazepam 1 MG TABLET PO SCH (10:00)
[2020-12-27] MEDS: QUEtiapine Fumarate 100 MG TABLET PO SCH (10:00)
[2020-12-27] MEDS: Topiramate 100 MG TABLET PO SCH (10:01)
[2020-12-27] MEDS: Insulin DETEMIR 100 UNIT/ML X5UNITS SUBQ SCH (10:01)
[2020-12-27] MEDS: Finasteride 5 MG TABLET PO SCH (10:01)
[2020-12-27] MEDS: Aspirin Enteric Coated 81 MG Tablet PO SCH (10:01)
[2020-12-27] MEDS: Cholecalciferol (D-3) 1,000 UNIT (25MCG) TABLET PO SCH (10:01)
[2020-12-27] MEDS: ARIPiprazole 10 MG TABLET PO SCH (10:01)
[2020-12-27 10:22] VITALS: BP 150/88; PULSE 85; TEMP 99.3
[2020-12-27 11:32] VITALS: O2SAT 91
[2020-12-27] MEDS: NIFEdipine XL (24 HR) 30 MG TAB.ER.24 PO SCH (11:55)
[2020-12-27] MEDS ORDERED: Sennosides/Docusate Sodium TABLET PO ONE (11:59)
[2020-12-27 12:57] LABS: Influenza A PCR Negative (Negative); Influenza B PCR Negative (Negative); Resp. Syncytial Virus PCR Negative (Negative)
[2020-12-27 13:04] LABS: SARS-CoV-2 by PCR (In House) Negative (Negative)
== END 2020-12-27 13:12 | DRG 280 ==
LOC: 2NNU 08:01 → EMEROOARM 08:01 → 2NNU 12:12 → SUATTDRO 13:25 → 3ANU 12-18 15:22
PROVIDERS: ADMIT Internal Medicine; ATTEND Internal Medicine